=== PATIENT | female | born 1945 | race Caucasian/White ===

== ENCOUNTER → 2018-02-11 | Outpatient (CLI) | payer OTHER | LOC: CAT 07:54 | DX: J32.2 Chronic ethmoidal sinusitis (principal) ==

== ENCOUNTER → 2018-05-25 | Outpatient (CLI) | payer OTHER | LOC: RAD 13:57 | DX: J18.9 Pneumonia, unspecified organism (principal); R06.02 Shortness of breath; K44.9 Diaphragmatic hernia without obstruction or gangrene ==

== ENCOUNTER → 2018-07-10 | Outpatient (CLI) | payer OTHER ==
--- NOTE | 2018-07-10 11:31 | 2DMMODE ---
[facility] [place] [employer] [place] [address] 2 D/M-MODE ECHOCARDIOGRAM Name: CARRILLO LEDBETTER Room #: [facility]#: [id number] ������������� Admission: 07/10/18 ������������� Attend Phys: Kana Jensen, Discharge: ��� ������������� ��� Date of : 49 Date of Service: 07/10/18 1130 �� Report #: [id number] �������� ��������������������������������������������[id number] THIS REPORT FOR: //name// APPROVED REPORT Study performed: 07/10/2018 10:07:31 EXAM: Comprehensive 2D, Doppler, and color-flow Echocardiogram Patient Location: Out-Patient Status: routine BSA: 1.83 HR: 86 bpm BP: 138/90 mmHg Rhythm: Atrial Fibrillation/PVCs Other Information Study Quality: Good Indications Cardiomegaly. Hx: Afib 2D Dimensions RVDd: 43.97 mm IVSd: 9.90 (7-11mm) LVOT Diam: 20.23 (18-24mm) LVDd: 39.90 mm PWd: 10.46 (7-11mm) Ascending Ao: 34.53 (22-36mm) LVDs: 27.38 (25-40mm) Aortic Root: 36.17 mm Volumes Left Atrial Volume (Systole) Single Plane 4CH: 80.61 mL Single Plane 2CH: 81.80 mL LA ESV Index: 47.00 mL/m2 Aortic Valve AoV Peak Jhonatan.: 1.56 m/s AO Peak Gr.: 9.79 mmHg LVOT Max P.92 mmHg LVOT Max V: 0.99 m/s MAYCO Vmax: 2.03 cm2 Mitral Valve MV Decel. Time: 175.22 ms MV E Max Jhonatan.: 0.69 m/s [facility] [id number] [place] [address] 2 D/M-MODE ECHOCARDIOGRAM Name: CARRILLO LEDBETTER Room #: [facility]#: [id number] ������������� Admission: 07/10/18 ������������� Attend Phys: Kana Jensen, Discharge: ��� ������������� ��� Date of : 49 Date of Service: 07/10/18 1130 �� Report #: [id number] �������� ��������������������������������������������[id number] Pulmonary Valve PV Peak Jhonatan.: 0.70 m/s PV Peak Gr.: 1.94 mmHg Tricuspid Valve TR Peak Jhonatan.: 2.42 m/s RAP Estimate: 5.00 mmHg TR Peak Gr.: 23.46 mmHg PA Pressure: 28.00 mmHg Left Ventricle The left ventricle is normal size. There is normal LV segmental wall motion. There is normal left ventricular wall thickness. Left ventricular systolic function is normal. LVEF is 60-65%. This study is not technically sufficient to allow evaluation of the LV diastolic function due to atrial fibrillation. Right Ventricle The right ventricle is normal size. The right ventricular systolic function is normal. Atria Left atrium is severely dilated. Right atrium is severely dilated. Aortic Valve Aortic valve is trileaflet, mildly calcified. Mild aortic regurgitation. There is no aortic valvular stenosis. Mitral Valve The mitral valve is normal in structure. Moderate mitral regurgitation. Tricuspid Valve The tricuspid valve is normal in structure. Moderate tricuspid regurgitation. Eccentric jet. Estimated PAP is 30mmHg. Pulmonic Valve The pulmonary valve is normal in structure. Trace pulmonic regurgitation. Great Vessels The aortic root is normal in size. The ascending aorta is normal in size. IVC is normal in size and collapses >50% with inspiration. Pericardium There is no pericardial effusion. [facility] [address] [place] [address] 2 D/M-MODE ECHOCARDIOGRAM Name: CARRILLO LEDBETTER [place] Room #: REG [facility]#: [id number] ������������� Admission: 07/10/18 ������������� Attend Phys: Kana Jensen, Discharge: ��� ������������� ��� Date of : 49 Date of Service: 07/10/18 1130 �� Report #: [id number] �������� ��������������������������������������������[id number] <Conclusion> The left ventricle is normal size. There is normal left ventricular wall thickness. Left ventricular systolic function is normal. The right ventricle is normal size. Left atrium is severely dilated. Right atrium is severely dilated. Mild aortic regurgitation. Moderate mitral regurgitation. Moderate tricuspid regurgitation. Eccentric jet. Estimated PAP is 30mmHg. ��������������������������������������������� <ELECTRONICALLY SIGNED> ���������������������������������������� By: Royer Gregory MD ��������������������������������������������� 07/10/18 1130 29 29 Royer Gregory MD /INF
== END ==
LOC: CV 09:57
DX: I08.3 Combined rheumatic disorders of mitral, aortic and tricuspid valves (principal); I48.91 Unspecified atrial fibrillation

== ENCOUNTER → 2018-12-14 | Outpatient (CLI) | payer OTHER | LOC: CAT 08:08 | DX: Z13.6 Encounter for screening for cardiovascular disorders (principal); E78.00 Pure hypercholesterolemia, unspecified; Z82.49 Family history of ischemic heart disease and other diseases of the circulatory system ==

== ENCOUNTER → 2020-02-08 | Outpatient (CLI) | payer OTHER | LOC: SJCVCIMAG 08:54 | PROVIDERS: ATTEND Internal Medicine Cardiovascular Disease | DX: I08.3 Combined rheumatic disorders of mitral, aortic and tricuspid valves (principal); I11.9 Hypertensive heart disease without heart failure; R94.31 Abnormal electrocardiogram [ECG] [EKG]; I48.91 Unspecified atrial fibrillation; Z79.899 Other long term (current) drug therapy ==

== ENCOUNTER → 2020-08-09 | Outpatient (CLI) | payer OTHER | LOC: SJCVC 11:23 | PROVIDERS: ATTEND Internal Medicine Cardiovascular Disease | DX: R94.31 Abnormal electrocardiogram [ECG] [EKG] (principal); I45.10 Unspecified right bundle-branch block; I10 Essential (primary) hypertension; I48.91 Unspecified atrial fibrillation; R60.9 Edema, unspecified; R55 Syncope and collapse; E03.9 Hypothyroidism, unspecified; Z90.710 Acquired absence of both cervix and uterus; Z98.890 Other specified postprocedural states; Z90.49 Acquired absence of other specified parts of digestive tract; Z88.8 Allergy status to other drugs, medicaments and biological substances; Z79.899 Other long term (current) drug therapy ==

== ENCOUNTER → 2021-02-26 | Outpatient (CLI) | payer OTHER | LOC: SJCVC 10:41 | PROVIDERS: ATTEND Internal Medicine Cardiovascular Disease | DX: I10 Essential (primary) hypertension (principal); I48.11 Longstanding persistent atrial fibrillation; R60.9 Edema, unspecified; R55 Syncope and collapse; E03.9 Hypothyroidism, unspecified; Z79.899 Other long term (current) drug therapy; Z88.8 Allergy status to other drugs, medicaments and biological substances; Z72.89 Other problems related to lifestyle ==